=== PATIENT | male | born 1970 | race African-American/Black ===

== ENCOUNTER 2017-06-17 00:33 | Emergency (ER) | payer OTHER ==
[2017-06-17 01:04] VITALS: BP 117/79; PULSE 66; TEMP 98; BMI 51.8
--- NOTE | 2017-06-17 01:48 | PDOC ---
History of Present Illness - General Chief Complaint: Wound Infection Stated Complaint: SWELLING TO RT FINGER Time Seen by Provider: 06/17/17 01:36 - History of Present Illness Initial Comments: 06/17/17 02:26 47 year old male with right index finger nail tip swelling and pus with pain and tenderness. reports cutting nails . \pmhx; hypertension, hypercholestremia Past History - Travel Traveled outside of the country in the last 30 days: Yes Close contact w/someone who was outside of country & ill: No - Past Medical History Allergies/Adverse Reactions: Allergies Allergy/AdvReac Type Severity Reaction Status Date / Time Penicillins Allergy Rash Verified 06/17/17 00:50 Home Medications: Ambulatory Orders Diltiazem Cd [Cardizem Cd -] 120 mg PO DAILY 06/20/13 Hydrochlorothiazide [Hctz -] 50 mg PO DAILY 06/20/13 Metoprolol Succinate [Toprol XL -] 100 mg PO BID 06/20/13 Omeprazole Magnesium [Prilosec (OTC)] 20 mg PO DAILY 06/20/13 Mag Hydrox/Al Hydrox/Simeth [Mylanta *Suspension*] 30 ml PO Q6H #10 cup Pantoprazole Sodium [Protonix] 40 mg PO DAILY #15 tablet. 06/04/15 Potassium Chloride 20 meq PO DAILY 06/04/15 Cardiac Disorders: Yes (svt) GI Disorders: Yes (gerd) HTN: Yes - Surgical History Appendectomy: Yes (1998) Cardiac Surgery: Yes (ablation) - Psycho/Social/Smoking Cessation Hx Suicidal Ideation: No Smoking Status: No Smoking History: Former smoker Have you smoked in the past 12 months: No Number of Cigarettes Smoked Daily: 12 Information on smoking cessation initiated: No *Physical Exam - Vital Signs Last Vital Signs Temp Pulse Resp BP Pulse Ox 98.0 F 66 18 117/79 97 06/17/17 00:44 06/17/17 00:44 06/17/17 00:44 06/17/17 00:44 06/17/17 00:44 - Physical Exam General Appearance: Yes: Appropriately Dressed Extremity: positive: Other (right index finger paronycia) Integumentary: positive: Normal Color, Dry, Warm Procedures - Incision and Drainage I&D Site: Right: Paronychia (index finger) Betadine cleansed: No Progress: 06/17/17 02:37 needle drained small amount of pus drainage. no redness and streaking to the finger. will d/ c home Progress Note - Progress Note Progress Note: keep soaking your finger in warm water. refrain from cutting nails short *DC/Admit/Observation/Transfer Diagnosis at time of Disposition: Paronychia of right index finger - Patient Instructions Printed Discharge Instructions: DI for Wound Infection Additional Instructions: soak your finger. refrain from cutting nail short. follow u with your doctor in 2 days for a wound check.
== END 2017-06-17 03:03 | disposition home or self-care (01) ==
LOC: JER 00:33
PROC: 0H9FXZZ Drainage of Right Hand Skin, External Approach (ICD-10-PCS; principal; 2017-06-17)
DX: L03.011 Cellulitis of right finger (principal); L02.511 Cutaneous abscess of right hand
CPT/HCPCS: 99281-25

== ENCOUNTER 2017-08-14 03:26 | Emergency (ER) | payer OTHER ==
[2017-08-14 03:33] VITALS: BMI 50.5
--- NOTE | 2017-08-14 04:05 | PDOC ---
History of Present Illness - General Chief Complaint: Pain Stated Complaint: ABDOMINAL PAIN Time Seen by Provider: 08/14/17 04:04 History Source: Patient - History of Present Illness Initial Comments: 08/14/17 04:33 Patient is a 47 y.o. male with a PMH of SVT (s/p ablation) HTN, Ventral Hernia , and recently diagnosed NIDDM who presents to the ED this morning c/o 1 day h/ o of watery, non-bloody diarrhea, epigastric + LLQ abdominal cramping as well as 1 episode of non-bloody emesis. Patient notes he recently started Metformin and he associates his vomiting with 2 whopper burgers from [employer] yesterday evening. Patient denies any fevers, chills, shortness of breath or chest. Allergies: Penicillin Surgical: Tonsillectomy (childhood); Cardiac Ablation Social: denies cigarettes, denies alcohol, denies recreational drugs Past History - Past Medical History Allergies/Adverse Reactions: Allergies Allergy/AdvReac Type Severity Reaction Status Date / Time Penicillins Allergy Rash Verified 08/14/17 03:31 Home Medications: Ambulatory Orders Diltiazem Cd [Cardizem Cd -] 120 mg PO DAILY 06/20/13 Hydrochlorothiazide [Hctz -] 50 mg PO DAILY 06/20/13 Metoprolol Succinate [Toprol XL -] 100 mg PO BID 06/20/13 Omeprazole Magnesium [Prilosec (OTC)] 20 mg PO DAILY 06/20/13 Mag Hydrox/Al Hydrox/Simeth [Mylanta *Suspension*] 30 ml PO Q6H #10 cup Pantoprazole Sodium [Protonix] 40 mg PO DAILY #15 tablet. 06/04/15 Potassium Chloride 20 meq PO DAILY 06/04/15 Cardiac Disorders: Yes (svt) GI Disorders: Yes (gerd) HTN: Yes - Surgical History Appendectomy: Yes (1998) Cardiac Surgery: Yes (ablation) - Suicide/Smoking/Psychosocial Hx Smoking Status: No Smoking History: Never smoked Have you smoked in the past 12 months: No Number of Cigarettes Smoked Daily: 12 Information on smoking cessation initiated: No Hx Alcohol Use: No Drug/Substance Use Hx: No Review of Systems - Review of Systems Constitutional: No: Chills, Fever Respiratory: No: Shortness of Breath Cardiac (ROS): No: Chest Pain ABD/GI: Yes: Diarrhea, Vomiting, Abdominal cramping. No: Constipated, Nausea All Other Systems: Reviewed and Negative *Physical Exam - Vital Signs Last Vital Signs Temp Pulse Resp BP Pulse Ox 97.4 F L 78 14 150/99 100 08/14/17 03:31 08/14/17 03:31 08/14/17 03:31 08/14/17 03:31 08/14/17 03:31 - Physical Exam General Appearance: Yes: Nourished, Obese Respiratory/Chest: positive: Lungs Clear Cardiovascular: positive: S1, S2 Gastrointestinal/Abdominal: positive: Normal Bowel Sounds, Soft. negative: Distended, Guarding, Rebound, Tenderness Integumentary: positive: Normal Color, Dry, Warm Neurologic: positive: Fully Oriented, Alert ED Treatment Course - LABORATORY CBC & Chemistry Diagram: 08/14/17 04:40 08/14/17 04:40 Medical Decision Making - Medical Decision Making 08/14/17 04:36 Patient is a 47 y.o. male who presents with diarrhea, abdominal cramping and 1 episode of non-bloody emesis. Initial DDx is for Metformin side effect vs. viral gastroenteritis vs. diverticulitis (less likely given patient's age). PLAN: 1. 1 L IV NS 2. CBC, CMP, Lipase 3. 1 L IV NS Reassess 08/14/17 07:51 Lipase wnL; patient's pain significantly resolved. Likely diagnosis is viral gastritis and likely disposition home once patient tolerates PO intake. Patient signed out to Dr. Todd (Resident) and Dr. Dunlap (Attending) *DC/Admit/Observation/Transfer Diagnosis at time of Disposition: Gastritis
--- NOTE | 2017-08-14 04:31 | PDOC ---
Attending Attestation - Resident Resident Name: Brandy Leo - ED Attending Attestation I have performed the following: I have examined & evaluated the patient, The case was reviewed & discussed with the resident, I agree w/resident's findings & plan, Exceptions are as noted - HPI HPI: 08/14/17 04:34 abdominal pain for since 7 pm last night along with diarrhea - Physicial Exam PE: 08/14/17 04:34 *Physical Exam General Appearance: Yes: Appropriately Dressed. No: Apparent Distress, Intoxicated HEENT: positive: EOMI, GARRY, Normal ENT Inspection, Normal Voice, TMs Normal, Pharynx Normal. negative: Pale Conjunctivae, Photophobia, Scleral Icterus (R), Scleral Icterus (L) Neck: positive: Trachea midline, Normal Thyroid, Supple. negative: Tender, Rigid, Carotid bruit, Stridor, Lymphadenopathy (R), Lymphadenopathy (L), Thyromegaly Respiratory/Chest: positive: Lungs Clear, Normal Breath Sounds. negative: Chest Tender, Respiratory Distress, Accessory Muscle Use, Labored Respiration, RES, Crackles, Rales, Rhonchi, Stridor, Wheezing, Dullness Cardiovascular: positive: Regular Rhythm, Regular Rate, S1, S2. negative: Edema , JVD, Murmur, Bradycardia, Tachycardia Vascular Pulses: Dorsalis-Pedis (R): 2+, Doralis-Pedis (L): 2+ Gastrointestinal/Abdominal: positive: Normal Bowel Sounds, Flat, Soft. negative : Tender, Organomegaly, Pulsatile Mass, Increased Bowel Sounds, Decreased BS, Distended, Guarding, Rebound, Hernia, Hepatomegaly, Spleenomegaly Lymphatic: negative: Adenopathy, Tenderness Musculoskeletal: positive: Normal Inspection. negative: CVA Tenderness, Decreased Range of Motion Extremity: positive: Normal Capillary Refill, Normal Inspection, Normal Range of Motion, Pelvis Stable. negative: Tender, Pedal Edema, Swelling, Erythema Integumentary: positive: Normal Color, Dry, Warm. negative: Cyanotic, Erythema , Jaundice, Rash Neurologic: positive: panel assembler II-XII NML intact, Fully Oriented, Alert, Normal Mood/ Affect, Motor Strength 5/5. negative: EOM Palsy, Facial Droop, Sensory Deficit - Medical Decision Making 08/14/17 19:35 Pt discharged to follow up with pcp.
[2017-08-14] MEDS ORDERED: SODIUM CHLORIDE 0.9% 1000 ML INFUS.BAG IV ONE ×3 (04:32→08:06)
[2017-08-14 05:04] LABS: BASOPHIL 0.6 % (0-2.0); EOSINOPHIL 0.7 % (0-4.5); MCH 28.9 pg (25.7-33.7); MCHC 32.9 g/dl (32.0-35.9); MEAN CELL VOLUME 87.9 fl (80-96); MEAN PLT VOLUME 9.2 fl (7.5-11.1); NEUTROPHILS 86.4 % (42.8-82.8); PLATELET COUNT 302 K/MM3 (134-434); RDW 12.8 % (11.9-15.9); WHITE BLOOD COUNT 11.5 K/mm3 (4.0-10.0)
[2017-08-14 05:26] LABS: ALBUMIN 3.8 g/dl (3.4-5.0); ALK PHOS 60 U/L (45-117); ANION GAP 12 (8-16); BILIRUBIN,TOTAL 0.7 mg/dL (0.2-1.0); CALCIUM 8.7 mg/dL (8.5-10.1); CO2 27 mmol/L (21-32); CREATININE 0.9 mg/dL (0.7-1.3); GLUCOSE,RANDOM 165 mg/dL (74-106); SGPT/ALT 26 U/L (12-78); TOT PROT 7.6 g/dl (6.4-8.2)
[2017-08-14 05:36] LABS: MAGNESIUM 1.8 mg/dL (1.8-2.4); SGOT/AST 19 U/L (15-37)
[2017-08-14] MEDS ORDERED: KETOROLAC TROMETHAMINE 30 MG/1 ML VIAL IM ONE (05:52)
[2017-08-14] MEDS ORDERED: PANTOPRAZOLE SODIUM 40 MG VIAL IVPUSH ONE (05:53)
[2017-08-14] MEDS ORDERED: KETOROLAC TROMETHAMINE 30 MG/1 ML VIAL IVPUSH ONE (06:07)
[2017-08-14] MEDS ORDERED: PANTOPRAZOLE SODIUM 100 ML IVPB ONE (06:08)
[2017-08-14] MEDS ORDERED: KETOROLAC TROMETHAMINE 30 MG/1 ML VIAL ONE (06:08)
[2017-08-14] MEDS ORDERED: FAMOTIDINE 20 MG/50 ML IVPB 50 ML IVPB ONE ×2 (07:34→08:07)
[2017-08-14] MEDS ORDERED: METOCLOPRAMIDE HCL INJECTION 10 MG/2 ML VIAL IVPUSH ONE (07:35)
[2017-08-14] MEDS ORDERED: DICYCLOMINE HCL 20 MG/2 ML AMPUL IM ONE (07:35)
--- NOTE | 2017-08-14 07:38 | PDOC ---
*Physical Exam - Vital Signs Last Vital Signs Temp Pulse Resp BP Pulse Ox 97.4 F L 76 18 115/78 99 08/14/17 03:31 08/14/17 06:47 08/14/17 06:47 08/14/17 06:47 08/14/17 06:47 - Physical Exam Comments: 08/14/17 07:35 gen: aaox3, appears uncomfortable, nauseated heart: +s1s2 reg Lungs: cta b/l Abd: soft, obese, nt/nd ext: no c/c/e ED Treatment Course - LABORATORY CBC & Chemistry Diagram: 08/14/17 04:40 08/14/17 04:40 - ADDITIONAL ORDERS Additional order review: Laboratory Results 08/14/17 08/14/17 04:40 04:40 Sodium 140 Potassium 4.0 Chloride 101 Carbon Dioxide 27 Anion Gap 12 BUN 16 Creatinine 0.9 D Creat Clearance w eGFR > 60 Random Glucose 165 H Calcium 8.7 Magnesium 1.8 Total Bilirubin 0.7 AST 19 D ALT 26 D Alkaline Phosphatase 60 Total Protein 7.6 Albumin 3.8 Lipase 192 08/14/17 04:40 RBC 5.58 MCV 87.9 MCHC 32.9 RDW 12.8 MPV 9.2 Neutrophils % 86.4 H Lymphocytes % 7.3 L D Monocytes % 5.0 Eosinophils % 0.7 D Basophils % 0.6 - Medications Given in the ED: ED Medications Discontinued Medications Generic Name Dose Route Start Last Admin Trade Name Freq PRN Reason Stop Dose Admin Ketorolac Tromethamine 30 mg 08/14/17 05:52 08/14/17 06:12 Toradol Injection - IM 08/14/17 05:53 Not Given ONCE ONE Ketorolac Tromethamine 30 mg 08/14/17 06:07 08/14/17 06:11 Toradol Injection - IVPUSH 08/14/17 06:08 30 mg ONCE ONE Administration Pantoprazole Sodium 40 mg 08/14/17 05:53 08/14/17 06:11 Protonix Iv IVPUSH 08/14/17 05:54 40 mg ONCE ONE Administration Sodium Chloride 1,000 ml 08/14/17 04:32 08/14/17 04:42 Normal Saline - IV 08/14/17 04:33 1,000 ml ONCE ONE Administration Medical Decision Making - Medical Decision Making 08/14/17 07:36 a/p: pt signed out pending re-eval, still nauseated, now with watery diarrhea. -c/o abd cramping -labs reviewed -suspect viral gastroenteritis -will remedicate and give bentyl for cramping -will continue to monitor and reassess 08/14/17 09:53 pt feeling much better. No further n/v. Abd soft. Stable for d/c to home. Will d /c home with zofran. Discussed all reasons to return to the Ed and need for follow up. Answered all questions. Discussed follow up with PMD. *DC/Admit/Observation/Transfer Diagnosis at time of Disposition: Gastritis - Discharge Dispostion Disposition: HOME Condition at time of disposition: Stable Admit: No - Prescriptions Prescriptions: Ondansetron [Zofran *Odt*] 8 mg SL TID PRN #10 od.tablet PRN Reason: Nausea And/Or Vomiting - Referrals Referrals: STAFF,NOT ON [Primary Care Provider] - Jasbir Hernandez MD [Staff Physician] - - Patient Instructions Printed Discharge Instructions: DI for Nausea -- Adult, DI for Diarrhea and Traveler's Diarrhea -- Adult Additional Instructions: Please stick to the BRAT diet. Please keep yourself well hydrated. Please follow up with your PMD. Please return to the ED with any further concerns.
--- NOTE | 2017-08-14 07:47 | PDOC ---
*Physical Exam - Vital Signs Last Vital Signs Temp Pulse Resp BP Pulse Ox 97.4 F L 76 18 115/78 99 08/14/17 03:31 08/14/17 06:47 08/14/17 06:47 08/14/17 06:47 08/14/17 06:47 ED Treatment Course - LABORATORY CBC & Chemistry Diagram: 08/14/17 04:40 08/14/17 04:40 - ADDITIONAL ORDERS Additional order review: Laboratory Results 08/14/17 08/14/17 04:40 04:40 Sodium 140 Potassium 4.0 Chloride 101 Carbon Dioxide 27 Anion Gap 12 BUN 16 Creatinine 0.9 D Creat Clearance w eGFR > 60 Random Glucose 165 H Calcium 8.7 Magnesium 1.8 Total Bilirubin 0.7 AST 19 D ALT 26 D Alkaline Phosphatase 60 Total Protein 7.6 Albumin 3.8 Lipase 192 08/14/17 04:40 RBC 5.58 MCV 87.9 MCHC 32.9 RDW 12.8 MPV 9.2 Neutrophils % 86.4 H Lymphocytes % 7.3 L D Monocytes % 5.0 Eosinophils % 0.7 D Basophils % 0.6 - Medications Given in the ED: ED Medications Discontinued Medications Generic Name Dose Route Start Last Admin Trade Name Freq PRN Reason Stop Dose Admin Ketorolac Tromethamine 30 mg 08/14/17 05:52 08/14/17 06:12 Toradol Injection - IM 08/14/17 05:53 Not Given ONCE ONE Ketorolac Tromethamine 30 mg 08/14/17 06:07 08/14/17 06:11 Toradol Injection - IVPUSH 08/14/17 06:08 30 mg ONCE ONE Administration Pantoprazole Sodium 40 mg 08/14/17 05:53 08/14/17 06:11 Protonix Iv IVPUSH 08/14/17 05:54 40 mg ONCE ONE Administration Sodium Chloride 1,000 ml 08/14/17 04:32 08/14/17 04:42 Normal Saline - IV 08/14/17 04:33 1,000 ml ONCE ONE Administration Medical Decision Making - Medical Decision Making 08/14/17 07:46 Patient was signed out to me by night team, Dr. Leo. Patient is a 47M who presented with GI pain. He is pending a PO challenge and discharge. Will reassess and disposition. *DC/Admit/Observation/Transfer Diagnosis at time of Disposition: Gastritis - Discharge Dispostion Disposition: HOME Condition at time of disposition: Stable - Prescriptions Prescriptions: Ondansetron [Zofran *Odt*] 8 mg SL TID PRN #10 od.tablet PRN Reason: Nausea And/Or Vomiting - Referrals Referrals: Jasbir Hernandez MD [Staff Physician] - STAFF,NOT ON [Primary Care Provider] - - Patient Instructions Printed Discharge Instructions: DI for Diarrhea and Traveler's Diarrhea -- Adult, DI for Nausea -- Adult Additional Instructions: Please stick to the BRAT diet. Please keep yourself well hydrated. Please follow up with your PMD. Please return to the ED with any further concerns.
[2017-08-14] MEDS ORDERED: DICYCLOMINE HCL 10 MG CAPSULE ONE (08:06)
[2017-08-14] MEDS ORDERED: METOCLOPRAMIDE HCL INJECTION 10 MG/2 ML VIAL ONE (08:06)
[2017-08-14] MEDS ORDERED: ONDANSETRON 4 MG/2 ML VIAL IVPUSH ONE (08:06)
[2017-08-14] MEDS ORDERED: ONDANSETRON 4 MG/2 ML VIAL ONE (08:10)
[2017-08-14] MEDS ORDERED: DICYCLOMINE HCL 20 MG TABLET PO ONE (09:08)
[2017-08-14 09:30] VITALS: TEMP 98.6
[2017-08-14 11:02] VITALS: BP 132/70; PULSE 85
== END 2017-08-14 11:06 | disposition home or self-care (01) ==
LOC: JER 03:26
PROC: 3E033GC Introduction of Other Therapeutic Substance into Peripheral Vein, Percutaneous Approach (ICD-10-PCS; principal; 2017-08-14)
PROC: 3E033GC Introduction of Other Therapeutic Substance into Peripheral Vein, Percutaneous Approach (ICD-10-PCS; 2017-08-14)
PROC: 3E0333Z Introduction of Anti-inflammatory into Peripheral Vein, Percutaneous Approach (ICD-10-PCS; 2017-08-14)
DX: K29.70 Gastritis, unspecified, without bleeding (principal); I10 Essential (primary) hypertension; E11.9 Type 2 diabetes mellitus without complications; Z79.84 Long term (current) use of oral hypoglycemic drugs; K21.9 Gastro-esophageal reflux disease without esophagitis; Z86.79 Personal history of other diseases of the circulatory system
CPT/HCPCS: 36415; 80053; 83690; 83735; 85025; 99282-25

== ENCOUNTER 2018-01-11 07:57 | Emergency (ER) | payer OTHER ==
[2018-01-11 08:28] VITALS: TEMP 98; BMI 52.9
[2018-01-11] MEDS ORDERED: KETOROLAC TROMETHAMINE 30 MG/1 ML VIAL IVPUSH ONE (08:49)
--- NOTE | 2018-01-11 08:49 | PDOC ---
History of Present Illness - General Chief Complaint: Ear Problem Stated Complaint: SWOLLEN EAR LOBE Time Seen by Provider: 01/11/18 08:37 History Source: Patient - History of Present Illness Timing/Duration: other Severity: severe Associated Symptoms: denies: fever/chills Past History - Past Medical History Allergies/Adverse Reactions: Allergies Allergy/AdvReac Type Severity Reaction Status Date / Time Penicillins Allergy Rash Verified 01/11/18 08:26 Home Medications: Ambulatory Orders Diltiazem Cd [Cardizem Cd -] 120 mg PO DAILY 06/20/13 Hydrochlorothiazide [Hctz -] 50 mg PO DAILY 06/20/13 Metoprolol Succinate [Toprol XL -] 100 mg PO BID 06/20/13 Omeprazole Magnesium [Prilosec (OTC)] 20 mg PO DAILY 06/20/13 Mag Hydrox/Al Hydrox/Simeth [Mylanta *Suspension*] 30 ml PO Q6H #10 cup Pantoprazole Sodium [Protonix] 40 mg PO DAILY #15 tablet.dr 06/04/15 Potassium Chloride 20 meq PO DAILY 06/04/15 Ondansetron [Zofran *Odt*] 8 mg SL TID PRN #10 od.tablet 08/14/17 Clindamycin [Cleocin -] 300 mg PO Q6HPO #28 capsule 01/11/18 Ibuprofen [Motrin -] 2 tab PO Q6H #30 tablet 01/11/18 Unobtainable 01/11/18 Cardiac Disorders: Yes (svt) COPD: No GI Disorders: Yes (gerd) HTN: Yes - Surgical History Appendectomy: Yes (1998) Cardiac Surgery: Yes (ablation) - Suicide/Smoking/Psychosocial Hx Smoking Status: No Smoking History: Never smoked Have you smoked in the past 12 months: No Number of Cigarettes Smoked Daily: 12 Hx Alcohol Use: No Drug/Substance Use Hx: No Review of Systems - Review of Systems Constitutional: No: Chills, Fever *Physical Exam - Vital Signs Last Vital Signs Temp Pulse Resp BP Pulse Ox 98 F 71 18 146/90 97 01/11/18 08:18 01/11/18 08:18 01/11/18 08:18 01/11/18 08:18 01/11/18 08:18 - Physical Exam General Appearance: Yes: Appropriately Dressed. No: Apparent Distress HEENT: positive: Normal Voice, Other (diffuse swelling to left earlobe with purulent drainage on palpation, firm area of swelling to pre-and postauricular area extending into the angle of mandible, no obvious erythema, no swelling or tenderness to floor of mouth and no observable saliva gland stones, white debris behind L TM w/ no obvious perf or active draiange, ? myringosclerosis vs cholestaema) Neck: positive: Supple Respiratory/Chest: negative: Respiratory Distress Integumentary: positive: Dry, Warm Neurologic: positive: Fully Oriented, Alert, Normal Mood/Affect ED Treatment Course - LABORATORY CBC & Chemistry Diagram: 01/11/18 09:20 01/11/18 14:45 - RADIOLOGY Radiology Studies Ordered: Category Date Time Status SOFT TISSUE NECK CT WITH CONTR [CT] Stat CT Scan 01/11/18 08:43 Ordered Medical Decision Making - Medical Decision Making 01/11/18 08:45 47-year-old morbidly obese male, history of gastritis, SVT s/p ablation, non- insulin-dependent diabetes, recurrent L otitis media, here with left facial pain and swelling. Patient states he noticed pain to left earlobe 2 days ago and yesterday noticed swelling to site extending into face and neck. States he heated a razor and used it to scott posterior aspect of lobe with only bloody discharge, no pus. Patient denies fever or chills. Denies any trauma. Patient states he has had facial abscesses in the past, but never to this extent See exam Facial abscess vs parotitis vs salivary stone/sialoadenitis Stable and well irina w/ significant swelling to L ear lobe w/ firm swelling to L pre/post auricular extending to angle of mandible, no e/o mastoiditis, no observable salivary stones, no e/o ludwigs -pain control -labs -CT 01/11/18 10:15 01/11/18 11:[address] Flowers of ENT. States if abscess localized on CT should start patient on antibiotics and have patient follow-up in the office tomorrow for I&D 01/11/18 17:59 CT read as edema around the left parotid gland suggestive of parotitis with likely reactive lymph node. No evidence of abscess or fluid collections per radiology. Also seen is a 4 mm stone in the left submandibular gland. IV fluids and antibiotics in progress. Anticipate admission. Will contact ENT to make aware of update 01/11/18 18:[address] Flowers of ENT, made aware of CT findings. As per M.D, states highly unlikely suppurative parotitis, that edema is most likely secondary to earlobe abscess. Agrees with IV fluids and a dose of IV antibiotics in ED. States patient can be discharged as long as stable and well appearing, to follow up with M.D. in the a.m. Patient satisfied with plan and feels safe going home to follow-up with ENT tomorrow *DC/Admit/Observation/Transfer Diagnosis at time of Disposition: Facial swelling Abscess, earlobe Qualifiers: Laterality: left Qualified Code(s): H60.02 - Abscess of left external ear - Discharge Dispostion Disposition: HOME Condition at time of disposition: Improved - Prescriptions Prescriptions: Clindamycin [Cleocin -] 300 mg PO Q6HPO #28 capsule Ibuprofen [Motrin -] 2 tab PO Q6H #30 tablet - Referrals Referrals: ON STAFF,NOT [Primary Care Provider] - Justin Flowers MD [Staff Physician] - - Patient Instructions Printed Discharge Instructions: DI for Skin Abscess Additional Instructions: You were seen for earlobe abscess. You were treated with IV fluids and antibiotics and will see Dr. Justin Flowers of ENT in the a.m. for incision and drainage of abscess. is located at [address], [address] floor, [place] [address] Office pens at 8:30 am Call office at [phone] prior to arrival Please take antibiotics as prescribed and drink plenty of fluids If symptoms worsen in the interim, please return to ER immediately - Post Discharge Activity Forms/Work/School Notes: Back to Work
[2018-01-11] MEDS ORDERED: KETOROLAC TROMETHAMINE 30 MG/1 ML VIAL ONE (09:29)
[2018-01-11 09:41] LABS: MCHC 33.3 g/dl (32.0-35.9); MEAN CELL VOLUME 89.1 fl (80-96); RDW 13.8 % (11.9-15.9)
[2018-01-11 09:54] LABS: BASO % 0.5 % (0-2.0); EOS % 3.3 % (0-4.5); HEMATOCRIT 41.1 % (35.4-49); HEMOGLOBIN 13.7 GM/dL (11.7-16.9); LYMPH % 24.2 % (8-40); MCH 29.7 pg (25.7-33.7); MEAN PLT VOLUME 9.7 fl (7.5-11.1); MONO % 11.4 % (3.8-10.2); NEUT % 60.6 % (42.8-82.8); PLATELET COUNT 224 K/MM3 (134-434); RBC 4.61 M/mm3 (4.00-5.60); WHITE BLOOD COUNT 9.6 K/mm3 (4.0-10.0)
[2018-01-11 10:07] LABS: INR 1.01 (0.82-1.09); PROTHROMBIN TIME (PATIENT) 11.4 SEC (9.98-11.88)
[2018-01-11 12:47] VITALS: PULSE 72
[2018-01-11 15:47] LABS: ALBUMIN 3.7 g/dl (3.4-5.0); ALK PHOS 63 U/L (45-117); ANION GAP 11 (8-16); BILIRUBIN,TOTAL 0.6 mg/dL (0.2-1.0); BLOOD UREA NITROGEN 18 mg/dL (7-18); CALCIUM 8.7 mg/dL (8.5-10.1); CHLORIDE 102 mmol/L (98-107); CO2 27 mmol/L (21-32); CREATININE 0.9 mg/dL (0.7-1.3); GLUCOSE,RANDOM 153 mg/dL (74-106); POTASSIUM 3.5 mmol/L (3.5-5.1); SGOT/AST 16 U/L (15-37); SGPT/ALT 26 U/L (12-78); SODIUM 140 mmol/L (136-145); TOT PROT 7.4 g/dl (6.4-8.2)
[2018-01-11] MEDS ORDERED: CLINDAMYCIN 600MG PREMIX IVPB 600 MG/50 ML BAG IVPB ONE ×2 (17:43→17:47)
[2018-01-11] MEDS ORDERED: traMADol HCL 50 MG TABLET PO ONE (17:43)
[2018-01-11 17:44] VITALS: BP 120/73
[2018-01-11] MEDS ORDERED: traMADol HCL 50 MG TABLET ONE (17:46)
[2018-01-11] MEDS ORDERED: SODIUM CHLORIDE 1,000 ML IV STA (17:54)
[2018-01-12 00:49] LABS: GLUCOSE,RANDOM 109 mg/dL (74-106)
[2018-01-12 00:50] LABS: ANION GAP 9 (8-16); BLOOD UREA NITROGEN 19 mg/dL (7-18); CHLORIDE 102 mmol/L (98-107); CO2 31 mmol/L (21-32); CREATININE 0.8 mg/dL (0.7-1.3); POTASSIUM 3.8 mmol/L (3.5-5.1); SODIUM 142 mmol/L (136-145)
[2018-01-12 00:51] LABS: ALBUMIN 4.5 g/dl (3.4-5.0); BILIRUBIN,TOTAL 0.8 mg/dL (0.2-1.0); CALCIUM 9.9 mg/dL (8.5-10.1); SGOT/AST 24 U/L (15-37); SGPT/ALT 25 U/L (12-78); TOT PROT 8.5 g/dl (6.4-8.2)
[2018-01-12 00:52] LABS: ALK PHOS 77 U/L (45-117)
--- NOTE | 2018-01-13 07:13 | PDOC ---
Patient Follow-up (Call Back) - Post ED Follow - Up Condition at time of discharge: Improved Disposition at time of original discharge: HOME Reason for Call Back: Abnwl. Microbiology (wound culture preliminary report with proteus species and Group D strep or entero coccus. Patient on Clindamycin. Will await final.)
== END 2018-01-11 19:50 | disposition home or self-care (01) ==
LOC: JER 07:57
DX: H60.02 Abscess of left external ear (principal); K11.20 Sialoadenitis, unspecified; I10 Essential (primary) hypertension; E11.9 Type 2 diabetes mellitus without complications; Z79.84 Long term (current) use of oral hypoglycemic drugs; K21.9 Gastro-esophageal reflux disease without esophagitis; Z86.79 Personal history of other diseases of the circulatory system
CPT/HCPCS: 36415; 70487-TC; 70491-TC; 80053; 82962; 85025; 85610; 86850; 86900; 86901; 87070; 87186; 87205; 99282-25; J7030

== ENCOUNTER 2022-02-07 06:51 | Emergency (ER) | payer OTHER ==
[2022-02-07 07:30] VITALS: BP 144/82; PULSE 79; TEMP 98.7; BMI 49.5
[2022-02-07] MEDS ORDERED: KETOROLAC TROMETHAMINE 60 MG/2 ML VIAL IM ONE (07:40)
[2022-02-07] MEDS ORDERED: KETOROLAC TROMETHAMINE 30 MG/1 ML VIAL ONE (07:46)
== END 2022-02-07 08:00 | disposition home or self-care (01) ==
LOC: JER 06:51
PROC: 3E0233Z Introduction of Anti-inflammatory into Muscle, Percutaneous Approach (ICD-10-PCS; principal; 2022-02-07)
DX: M54.2 Cervicalgia (principal); M62.838 Other muscle spasm; M79.602 Pain in left arm
CPT/HCPCS: 99284-25